=== PATIENT | female | born 1990 | race Caucasian/White ===

== ENCOUNTER 2024-03-08 08:12 | Outpatient (CLI) | payer OTHER, MEDICARE, MEDICAID, SELFPAY ==
--- NOTE | ~2024-03-08 | XR_ITS ---
XR sacroiliac joints min 3V Ordering provider: Geoffrey Mccollum, [employer] History: . Sacrococcygeal disorders, not elsewhere classified . Comparison: None. FINDINGS: BONES: No acute fracture or dislocation. JOINTS: The bilateral sacroiliac joints of the left normal. No bony fusion of the sacroiliac joints o r bony erosions. SOFT TISSUES: Unremarkable. ANGULAR JS DEVELOPER shunt is noted. IMPRESSION: NO ACUTE OSSEOUS ABNORMALITY. NORMAL SACROILIAC JOINTS. Reviewed, dictated and finalized at location A.
== END 2024-03-08 08:13 ==
PROVIDERS: PCP Nurse Practitioner Family; Visit Provider Nurse Practitioner Family
DX: M53.3 Sacrococcygeal disorders, not elsewhere classified (principal)
CPT/HCPCS: 72202